=== PATIENT | male | born 2000 | race Caucasian/White ===

== ENCOUNTER 2023-05-28 18:00 | Emergency (ER) | payer BC ==
[~2023-05-28] VITALS: Ht 180.3 cm; Wt 70.0 kg
[2023-05-28 18:10] VITALS: BP 133/72; PULSE 100; RESP 18; TEMP 97.8; O2SAT 96
[2023-05-28] MEDS ORDERED: CEPH-585 PO (20:09)
== END 2023-05-28 20:19 | disposition home or self-care (01) ==
LOC: ER 18:03
DX: S91.312D Laceration without foreign body, left foot, subsequent encounter (principal); X58.XXXD Exposure to other specified factors, subsequent encounter
CPT/HCPCS: 99283